=== PATIENT | female | born 1985 | race Two or more races ===

== ENCOUNTER 2024-05-31 03:36 | Emergency (ER) | payer MEDICAID, SELFPAY ==
[2024-05-31 03:41] VITALS: BP 114/79; PULSE 102; RESP 18; TEMP 36.7; O2SAT 96; BMI 23.2
--- NOTE | 2024-05-31 04:09 | PD.EDRME ---
Rapid Medical Screening Exam RME Arrival date/time: 05/31/24 03:36 39F with many pregnancies/miscarriages/abortions (patient does not remember how many exactly) presents to ED with 1 day of pelvic pain and vaginal bleeding. Unknown gestational age. Chief Complaint: Vaginal Bleeding Vital signs: Vital Signs Temperature 98.1 F 05/31/24 03:41 Pulse Rate 102 H 05/31/24 03:41 Respiratory Rate 18 05/31/24 03:41 Blood Pressure 114/79 05/31/24 03:41 Pulse Oximetry (%) 96 05/31/24 03:41 Oxygen Delivery Method Room Air 05/31/24 03:41
--- NOTE | 2024-05-31 04:29 | XR_ITS ---
Examination: Complete OB ultrasound, less than 14 weeks, transabdominal Date and time of exam: May 31, 2024 0432 hrs. Indications: Vaginal bleeding beginning 2 days ago Technique: Obstetrical ultrasound images less than 14 weeks performed via transabdominal imaging Findings: Uterus 11.2 cm endometrial stripe 2.3 cm Mild retained products of conception in the endometrium, 10 mm Gestational sac in the cervix 2.5 cm with no pole Right ovary obscured by bowel gas Left ovary 4.8 cm poorly visualized Impression: Findings most consistent with spontaneous in progress. Recommend short-term follow-up transvaginal pelvic sonography
--- NOTE | 2024-05-31 05:47 | PRELIM_ITS ---
Obstetric ultrasound (transabdominal) with Doppler. May 31, 2024 at 0432 hours Clinical history: Pain/bleeding; unknown gestational age. Technique: Real-time ultrasound was performed using Duplex scanning including arterial inflow, venous outflow, color and spectral Doppler analysis of both ovaries. Comparison: None. Findings: Cystic lesion in the endometrium measuring 0.7 x 0.6 x 1.0 cm without evidence of pole or yolk sac. Cystic lesion in the cervical canal measuring 2.5 x 2.0 x 2.0 cm without evidence of pole or yolk sac. The endometrium measures 2.2 cm. The uterus measures 11.2 x 6.6 x 6.2 cm. The right ovary was not visualized. The left ovary measures 4.8 x 3.2 cm, limited evaluation There is no free fluid in the pelvis. No abnormalities by Doppler. Impression: Cystic lesions in the endometrial canal and in the cervical canal without evidence of pole or yolk sac, please, correlate clinically. Differential necrosis includes early and ongoing spontaneous . Report Electronically Signed By: Frankie Ludwig 05/31/2024 5:46:59 AM [EST]
[2024-05-31 05:51] LABS: Basophils % (Auto) 0 % (0-2.5); Eosinophils # (Auto) 0.4 Thou/mm3 (0.0-0.5); Eosinophils % (Auto) 4 % (0-10); Hemoglobin 9.1 g/dL (12.0-16.0); Immature Granulocytes % (Auto) 0 % (0-0); Immature Granulocytes Auto 0.03 Thou/mm3 (0.00-0.00); Lymphocytes # (Auto) 1.8 Thou/mm3 (1.0-4.8); Lymphocytes % (Auto) 17 % (10-50); Mean Corpuscular HGB Conc 27.6 g/dl (31.0-37.0); Mean Corpuscular Hemoglobin 17.6 pg (25.0-35.0); Mean Corpuscular Volume 64 fL (80-100); Monocytes # (Auto) 0.8 Thou/mm3 (0.0-0.8); Monocytes % (Auto) 7 % (0-12); Neutrophils # (Auto) 7.6 Thou/mm3 (1.8-7.7); Neutrophils % (Auto) 72 % (37-80); Nucleated Red Blood Cell % 0 /100 WBC (0); Platelet Count 445 Thou/mm3 (140-440); RDW Standard Deviation 44.5 fL (36.4-46.3); Red Blood Count 5.18 Miln/mm3 (4.00-5.20); White Blood Count 10.6 Thou/mm3 (3.6-11.0)
[2024-05-31 06:17] VITALS: BP 113/75; PULSE 84; RESP 18; TEMP 37.1; O2SAT 99
[2024-05-31 06:34] LABS: Alanine Aminotransferase 28 U/L (10-49); Albumin, Serum 4.2 gm/dL (3.5-5.0); Albumin/Globulin Ratio 1.5 (1.2-2.2); Alkaline Phosphatase 98 U/L (46-116); Anion Gap 10 (7-16); Aspartate Amino Transferase 27 U/L (0-34); BUN/Creatinine Ratio 20 Ratio (12-20); Bilirubin,Total 0.2 mg/dL (0.3-1.2); Blood Urea Nitrogen 14 mg/dL (9-23); Calcium 8.9 mg/dL (8.3-10.6); Calcium (Corrected) 8.9 mg/dL (8.5-10.1); Carbon Dioxide 26.2 mMol/L (20.0-31.0); Chloride 104 mMol/L (98-107); Creatinine (Component) 0.7 mg/dL (0.6-1.3); Estimated Creatinine Clearance 84.5 mL/min (>60); Globulin 2.8 gm/dL (2.3-3.5); Glucose 95 mg/dL (74-106); Osmolality,Calculated 279 (275-295); Potassium 3.7 mMol/L (3.4-5.1); Sodium 140 mMol/L (136-145); eGFR > 60 See Note
[2024-05-31 06:51] LABS: Beta HCG,Quantitative 24510 mIU/mL (<5.0)
--- NOTE | 2024-05-31 07:56 | PC.NURSE ---
PT TOLD REGISTRATION SHE FEELS BETTER AND HAS TO TAKE HER KIDS TO SCHOOL. EL[facility]ED FROM [facility]
[2024-05-31 13:44] LABS: Path Review Blood Smear Sent to Pathologist
== END 2024-05-31 07:57 | disposition left against medical advice (07) ==
LOC: SERX 07:05
PROVIDERS: Physician Assistant; Emergency Provider Emergency Medicine; PCP Family Medicine
DX: R10.2 Pelvic and perineal pain (principal); N93.9 Abnormal uterine and vaginal bleeding, unspecified; Z53.29 Procedure and treatment not carried out because of patient's decision for other reasons
CPT/HCPCS: 36415; 76801; 80053; 80307; 81001; 84702; 85025; 86900; 86901; 99281

== ENCOUNTER 2025-03-05 16:46 | Emergency (ER) | payer MEDICAID, SELFPAY ==
[2025-03-05 16:59] VITALS: BP 118/72; PULSE 88; RESP 24; TEMP 36.7; O2SAT 99; BMI 24.8
--- NOTE | 2025-03-05 17:32 | PD.EDRME ---
Rapid Medical Screening Exam RME Arrival date/time: 03/05/25 16:46 39-year-old female with a history of asthma presents to the emergency room with a chief complaint of difficulty breathing x 1 day I have greeted and performed a focused initial assessment of this patient. A comprehensive ED assessment and evaluation of the patient, analysis of all test results, and completion of the medical decision making process will be conducted by additional ED providers. Chief Complaint: Asthma Time Seen by Provider: 03/05/25 16:48 Vital signs: Vital Signs Temperature 98.1 F 03/05/25 16:59 Pulse Rate 88 03/05/25 16:59 Respiratory Rate 24 H 03/05/25 16:59 Blood Pressure 118/72 03/05/25 16:59 Pulse Oximetry (%) 99 03/05/25 16:59 Oxygen Delivery Method Room Air 03/05/25 16:59 Vital signs reviewed by provider: Yes Exam: The patient has wheezing to the bilateral upper lobes O2 saturation is 99% on room air Patient has a strong and regular rhythm S1 and S2 Clinical Impression: URI/asthma exacerbation
[2025-03-05] MEDS: ALBUTEROL/IPRATROPIUM (Duoneb) RT SOL 3 ML NEBU 6 ML INH (17:54)
[2025-03-05 17:58] VITALS: PULSE 99; RESP 20; O2SAT 100
--- NOTE | 2025-03-05 18:38 | EDNOTE_ITS ---
ED General RME/HPI General Chief complaint: Asthma Stated complaint: DIFFICULTY BREATHING, DIFFICULTY TALKING, ASTHMA Time Seen by Provider: 03/05/25 16:48 Arrival date/time: 03/05/25 16:46 CC: Wheezing, ongoing for the past day, the patient denies fever chills shortness of breath difficulty breathing no OTC medicines taken. The patient is a G9,P6 at an estimated 5 months who has had no care in this denying any vaginal bleeding vaginal discharge. Patient has a history of asthma that is her primary complaint. RME / HPI RME / HPI narrative: 03/05/25 16:46 39-year-old female with a history of asthma presents to the emergency room with a chief complaint of difficulty breathing x 1 day I have greeted and performed a focused initial assessment of this patient. A comprehensive ED assessment and evaluation of the patient, analysis of all test results, and completion of the medical decision making process will be conducted by additional ED providers. Exam: The patient has wheezing to the bilateral upper lobes O2 saturation is 99% on room air Patient has a strong and regular rhythm S1 and S2 Impression: URI/asthma exacerbation Related Data Previous Rx's ?Medication ?Instructions ?Recorded albuterol sulfate 90 mcg/actuation 1 inh inhalation QI D #1 ea 03/05/25 breath activated powder inhaler Allergies Allergy/AdvReac Type Severity Reaction Status Date / Time No Known Allergies Allergy Verified 03/05/25 16:48 Review of Systems Review of Systems Narrative Review of Systems: GEN: No fever, no chills, no weight loss EYES: No discharge, no visual changes, no pain HEENT: No ear pain, no congestion, no sore throat PULM: No shortness of breath, no cough, no congestion,+ wheezing CV: No chest pain, no dyspnea on exertion, no palpitations GI: No nausea, no vomiting, no diarrhea, no pain, no constipation : No frequency, no urgency, no dysuria MUSC/SKEL: No joint pain, no back pain SKIN: No rash PSYCH: No hallucinations, no depression HEME/LYMPH: No easy bleeding or bruising tendencies NEURO: No weakness, no headache ED Exam Narrative Physical exam: [General: Not in any acute distress Head normocephalic HEENT: Within acceptable limits Neck is supple nontender Chest equal chest rise nontender to palpation Respiratory: Clear to auscultation with normal respiratory effort. End expiratory wheezing with forceful exhalation. No nasal flaring or pursed lip breathing. CV: Rate rhythm is regular no murmurs rubs or clicks Abdomen is distended secondary to , soft nontender no masses positive bowel sounds all 4 quadrants. heart tones established in the left lower quadrant of the abdomen with heart rate at 158-160 good variability. Back: No CVA tenderness no spinous process tenderness from cervical spine thoracic and lumbar spine Skin: Intact no petechiae rash induration ulceration or crepitus Extremities: Moving all extremity against resistance cap refill less than 2 seconds neurosensory intact Neuro: Awake alert oriented x3 Glascow coma 15 no focal deficits] Course Course Course Narrative: Upon reassessment of the patient at 1900, the patient has significant improvement with no end expiratory wheezing. heart tones are within acceptable range. Patient be discharged on inhaler asking requested. Patient is already on vitamins but has no OB follow-up at this time. Quality Measures none Orders Category Date Time Status ALBUTEROL RT 0.5ml [Proventil Rt 0.5ml] Med 03/05/25 18:38 Discontinued 2.5 mg INH X1 ONE Albuterol/Ipratr Rt Myriam [Duoneb Rt Myriam] Med 03/05/25 16:59 Discontinued 6 ml INH X1 ONE Sodium Chloride Rt Myriam 0.9% [NS Rt Myriam 0.9%] Med 03/05/25 18:38 Active 3 ml INH PRN PRN dexAMETHasone INJ [Decadron Inj] Med 03/05/25 16:59 Discontinued 10 mg PO X1 ONE Vital Signs Vital signs: Vital Signs Temperature 98.1 F 03/05/25 16:59 Pulse Rate 88 03/05/25 16:59 Respiratory Rate 24 H 03/05/25 16:59 Blood Pressure 118/72 03/05/25 16:59 Pulse Oximetry (%) 99 03/05/25 16:59 Oxygen Delivery Method Room Air 03/05/25 16:59 Discharge Plan Plan Patient Disposition: HOME (Self Care) Patient condition on transfer: Stable Prescriptions/Referrals Prescriptions/Med Rec: New albuterol sulfate 90 mcg/actuation aerosol powdr breath activated 1 inh inhalation QID Qty: 1 1RF Problem List Clinical Impression: Asthma, Patient/Caregiver Discharge Instructions Education Materials: Preg 2nd Trimester, Asthma Print Language: Latvian Stand Alone Forms: Inna Blount Info., Patient Portal Info Letter, Work/School Release PA/DERMATOLOGY PHYSICIAN Supervising Physician PA/DERMATOLOGY PHYSICIAN Supervising Physician: Abel Diaz ENP MDM Clinical Information Provided by: patient Medical Records reviewed [facility] Meds/Rx considered, not ordered None Labs/Rad/Tests considered, not ordered None Chronic Illness/Social Conditions Explain: EKG EKG not done Labs Labs: none Imaging Imaging interpretation: none Medication Administration(s) none Medication Administration History Sodium Chloride (Sodium Chloride Rt Myriam 0.9% 3 Ml Nebu) 3 ml INH PRN PRN PRN Reason: SOLN Stop: 04/04/25 18:37 Last Admin: 03/05/25 18:48 Dose: 3 ml Documented By: PAR Discontinued Medications Albuterol (Albuterol Rt 2.5 Mg/0.5 Ml Nebu) 2.5 mg INH X1 ONE Stop: 03/05/25 18:39 Last Admin: 03/05/25 18:48 Dose: 2.5 mg Documented By: PAR Albuterol/Ipratropium (Albuterol/Ipratropium (Duoneb) Rt Myriam 3 Ml Nebu) 6 ml INH X1 ONE Stop: 03/05/25 17:00 Last Admin: 03/05/25 17:54 Dose: 6 ml Documented By: PAR Dexamethasone Sodium Phosphate (Dexamethasone Sod Phos Inj 10 Mg/Ml Vial) 10 mg PO X1 ONE Stop: 03/05/25 17:00 Last Admin: 03/05/25 17:09 Dose: 10 mg Documented By: OA Diagnosis Differential Diagnosis ED Complaint MDM: Asthma exacerbation status asthmaticus viral syndrome
[2025-03-05 18:48] VITALS: PULSE 102; PULSE 97; RESP 18; O2SAT 100
[2025-03-05] MEDS: SODIUM CHLORIDE RT SOL 0.9% 3 ML NEBU INH (18:48)
[2025-03-05] MEDS: ALBUTEROL RT 2.5 MG/0.5 ML NEBU INH (18:48)
== END 2025-03-05 19:16 | disposition home or self-care (01) ==
PROVIDERS: Emergency Provider Emergency Medicine; PCP Family Medicine
DX: O99.512 Diseases of the respiratory system complicating pregnancy, second trimester (principal); J45.909 Unspecified asthma, uncomplicated; Z3A.00 Weeks of gestation of pregnancy not specified
CPT/HCPCS: 94640; 99283; A9270; J1100; J7611

== ENCOUNTER 2025-03-06 13:16 | Emergency (ER) | payer MEDICAID, SELFPAY ==
[2025-03-06 13:26] VITALS: BP 137/88; PULSE 126; RESP 26; TEMP 36.4; O2SAT 99; BMI 23.2
--- NOTE | 2025-03-06 13:30 | XR_ITS ---
EXAMINATION: PA chest single view TECHNIQUE: Upright PA chest single view Date and time: March 06, 2025, 1424 hours INDICATIONS: Shortness of breath today. FINDINGS: Significant bibasilar pneumonia Normal heart size Intact osseous structures IMPRESSION: Significant bibasilar pneumonia
--- NOTE | 2025-03-06 13:30 | EKG_ITS ---
[facility] Test Date: 2025-03-06 Pat Name: MONICA WASHINGTON Department: Room: - Gender: Female Beveler: : 1985 Requested By: Roderick Hoff (REMI) Order Number: [id number] Reading MD: Roderick Hoff (REMI) Measurements Intervals [place] Rate: 111 P: 75 SD: 117 QRS: 32 QRSD: 97 T: 38 QT: 321 QTc: 436 Interpretive Statements SINUS TACHYCARDIA WITH SHORT SD INTERVAL NONSPECIFIC ST & T-WAVE ABNORMALITY ABNORMAL RHYTHM ECG No previous ECG available for comparison /store/S0/[id number]/ecg/[id number].pdf
--- NOTE | 2025-03-06 13:31 | XR_ITS ---
Examination: Complete OB ultrasound greater than 14 weeks Date and time of exam: March 06, 2025, 1436 hours INDICATION: Shortness of breath today, 5-month by history Findings: Viable intrauterine single fetus with single amniotic sac presentation cephalic spine maternal right Cardiac motion 173 bpm Placenta complete previa Umbilical cord insertion and three-vessel marginal cord insertion 1 cm Amniotic fluid index 10.9 cm spine maternal right Cervix 4.1 cm Right ovary 3.0 cm arterial flow Left ovary 2.4 cm. Composite estimated gestational age based on BPD, head circumference, abdominal circumference, femur length is 15 weeks 4 days Estimated weight 126 g. Survey of intracranial anatomy, spinal anatomy, abdominal anatomy, four-chamber heart performed with no abnormalities identified. Impression: Viable intrauterine gestation cephalic presentation Complete placenta previa.
--- NOTE | 2025-03-06 13:32 | PD.EDRME ---
Rapid Medical Screening Exam RME Arrival date/time: 03/06/25 13:16 39-year-old female G9, P6 approximately 5 months presents to the Emergency Department for complaint of shortness of breath Chief Complaint: Shortness of Breath/Dyspnea Vital signs: Vital Signs Temperature 97.5 F 03/06/25 13:26 Pulse Rate 126 H 03/06/25 13:26 Respiratory Rate 26 H 03/06/25 13:26 Blood Pressure 137/88 H 03/06/25 13:26 Pulse Oximetry (%) 99 03/06/25 13:26 Oxygen Delivery Method Room Air 03/06/25 13:26 Vital signs reviewed by provider: Yes Exam: On exam patient tearful and anxious reports shortness of breath Clinical Impression: Lab work imaging obtained
[2025-03-06 13:57] LABS: Basophils # (Auto) 0.0 Thou/mm3 (0.0-0.2); Basophils % (Auto) 0 % (0-2.5); Eosinophils # (Auto) 0.0 Thou/mm3 (0.0-0.5); Eosinophils % (Auto) 0 % (0-10); Hematocrit 35.2 % (36.0-46.0); Hemoglobin 10.9 g/dL (12.0-16.0); Immature Granulocytes Auto 0.06 Thou/mm3 (0.00-0.00); Lymphocytes # (Auto) 0.5 Thou/mm3 (1.0-4.8); Lymphocytes % (Auto) 4 % (10-50); Mean Corpuscular HGB Conc 31.0 g/dl (31.0-37.0); Mean Corpuscular Hemoglobin 21.9 pg (25.0-35.0); Mean Corpuscular Volume 71 fL (80-100); Monocytes # (Auto) 0.6 Thou/mm3 (0.0-0.8); Monocytes % (Auto) 5 % (0-12); Neutrophils # (Auto) 11.2 Thou/mm3 (1.8-7.7); Neutrophils % (Auto) 91 % (37-80); Nucleated Red Blood Cell # 0.00 Thou/mm3 (0.00-0.00); Nucleated Red Blood Cell % 0 /100 WBC (0); Platelet Count 320 Thou/mm3 (140-440); RDW Standard Deviation 61.2 fL (36.4-46.3); Red Blood Count 4.97 Miln/mm3 (4.00-5.20); White Blood Count 12.4 Thou/mm3 (3.6-11.0)
[2025-03-06 14:21] LABS: Alanine Aminotransferase 13 U/L (10-49); Albumin, Serum 4.2 gm/dL (3.5-5.0); Albumin/Globulin Ratio 1.2 (1.2-2.2); Alkaline Phosphatase 85 U/L (46-116); Anion Gap 12 (7-16); Aspartate Amino Transferase 28 U/L (0-34); BUN/Creatinine Ratio 10 Ratio (12-20); Bilirubin,Total 0.2 mg/dL (0.3-1.2); Blood Urea Nitrogen 6 mg/dL (9-23); Calcium 9.2 mg/dL (8.3-10.6); Calcium (Corrected) 9.2 mg/dL (8.5-10.1); Carbon Dioxide 21.7 mMol/L (20.0-31.0); Chloride 104 mMol/L (98-107); Creatinine (Component) 0.6 mg/dL (0.6-1.3); Estimated Creatinine Clearance 98.6 mL/min (>60); Globulin 3.4 gm/dL (2.3-3.5); Glucose 106 mg/dL (74-106); Osmolality,Calculated 273 (275-295); Potassium 3.5 mMol/L (3.4-5.1); Sodium 138 mMol/L (136-145); Total Protein 7.6 gm/dL (5.7-8.2); Troponin I < 0.002 ng/mL (0.0-0.045); eGFR > 60 See Note
[2025-03-06 15:06] LABS: Beta HCG,Quantitative 25555 mIU/mL (<5.0)
--- NOTE | 2025-03-06 16:38 | EDNOTE_ITS ---
<Statement entered by Kelli Graff MD - 03/21/25 07:23> As co-signing physician, I was present and available for consult prn. I concur with the plan and care as documented by the midlevel provider. ED SOB =RME/HPI General Chief Complaint: Shortness of Breath/Dyspnea Stated Complaint: DIFFICULTY BREATHING, BACK/CHEST PAIN Time Seen by Provider: 03/06/25 16:15 Arrival date/time: 39-year-old female with no past medical history G9, P6 approximately 5 months presents to the Emergency Department for complaint of shortness of breath, cough, nonproductive, severity moderate. Has been ongoing for the last few days. Patient denies any fever denies any other complaints no medication was taken prior to ER visit RME / HPI Exam: On exam patient tearful and anxious reports shortness of breath Impression: Lab work imaging obtained Related Data Previous Rx's ?Medication ?Instructions ?Recorded albuterol sulfate 90 mcg/actuation 1 inh inhalation QI D #1 ea 03/05/25 breath activated powder inhaler albuterol sulfate 2.5 mg/3 mL 2.5 mg (3 mL) inhalation QID PRN 03/06/25 (0.083 %) solution for nebulization shortness of breat h or wheezing #90 mL amoxicillin 875 mg-potassium 1 tab PO BID #14 tabs clavulanate 125 mg tablet azithromycin 250 mg tablet 250 mg PO QDAY 4 days #4 ta bs 03/06/25 (Zithromax) Allergies Allergy/AdvReac Type Severity Reaction Status Date / Time No Known Allergies Allergy Verified 03/06/25 13:18 Review of Systems Review of Systems Narrative Review of Systems: Review of system reviewed and within normal limits except mentioned in HPI ED Exam Narrative Physical exam: VITAL SIGNS: Reviewed. GENERAL APPEARANCE: Alert and interactive, follows commands, no acute distress, HEAD AND FACE: Non-traumatic. ENT: PERRL, pink conjunctivitis, eyelid no trauma, Mucous membrane moist. NECK: Supple, nontender, no nuchal rigidity. CHEST: No tenderness, no crepitus, no paradoxical movement, no retractions. LUNGS: Clear, well ventilated, symmetric, no rales, no wheezing, no ronchi, no stridor, good breath sounds bilaterally. HEART: Regular rate, regular rhythm, no murmur, no gallops. ABDOMEN: Soft, positive bowel sounds, nondistended, no guarding, nontender, no rebound, no masses, RECTAL: Deferred. GENITAL: Deferred. NEUROLOGICAL: Gross motor function intact sensory function intact, Appropriate for age. MUSCULOSKELETAL: low back nontender, full range of motion. EXTREMITIES: Nontender, full range of motion. SKIN: Color pink, dry, no rash, no lacerations, no abrasions, no contusions. LYMPHATICS: Deferred. Course Quality Measures none Orders Category Date Time Status EKG (ED ONLY) *Do not use* NOW Care 03/06/25 13:30 Completed EKG (ED Only) Stat Exams 03/06/25 13:30 Draft US OB >= 14 weeks Fetus Stat Exams 03/06/25 13:31 Completed XR chest 1V portable Stat Exams 03/06/25 13:30 Completed Beta HCG,Quantitative Stat Lab 03/06/25 13:42 Completed CBC Stat Lab 03/06/25 13:42 Completed Comprehensive Metabolic Panel Stat Lab 03/06/25 13:42 Completed Drug Screen,Urine Stat Lab 03/06/25 13:31 Ordered Troponin I Stat Lab 03/06/25 13:42 Completed Amoxicillin/Pot Clav 875 [Augmentin 875] Med 03/06/25 16:41 Discontinued 1 tab PO X1 ONE Azithromycin Po [Zithromax PO] Med 03/06/25 16:41 Discontinued 500 mg PO X1 ONE predniSONE Med 03/06/25 17:05 Once 60 mg PO X1 ONE Vital Signs Vital signs: Vital Signs Temperature 97.5 F 03/06/25 13:26 Pulse Rate 126 H 03/06/25 13:26 Respiratory Rate 26 H 03/06/25 13:26 Blood Pressure 137/88 H 03/06/25 13:26 Pulse Oximetry (%) 99 03/06/25 13:26 Oxygen Delivery Method Room Air 03/06/25 13:26 Shortness of Breath / Dyspnea MDM Narrative MDM Narrative:: 39-year-old female with no past medical history G9, P6 approximately 5 months presents to the Emergency Department for complaint of shortness of breath, cough, nonproductive, severity moderate. Has been ongoing for the last few days. Patient denies any fever denies any other complaints no medication was taken prior to ER visit Patient has a history of bilateral pneumonia. Patient laboratory workup came back unremarkable except for slight leukocytosis 12.4. CMP unremarkable. Ultrasound of the showed single live intrauterine uterine gestation about 15 weeks gestation. EKG showed sinus tachycardia, ventricular rate of 111 bpm, no ST segment elevation depression noted. Patient received a dose of prednisone, benefits outweigh the risk at this time. Patient is aware of the risk. Patient accepts the risk. Patient was also given Augmentin and Zithromax. Stable for discharge home Patient data External records reviewed:: None Clinical information provided by:: patient Social determinants that could affect healthcare access:: none Patient has the following chronic illnesses:: history of asthma How is presenting disease/condition affected by chronic disease/condition?: e xacerbated by Evaluation data The following diagnostics were reviewed and interpreted by me:: lab results and radiology exam(s) Lab and/or radiology exams considered but not ordered:: None Interpretation Summary: See above Medications / Prescriptions Medications or Prescriptions considered but not ordered:: None Medication administrations:: Medication Administration History Discontinued Medications Amoxicillin/Clavulanate Potassium (Amoxicillin/Pot Clav 875 Tablet) 1 tab PO X1 ONE Stop: 03/06/25 16:42 Azithromycin (Azithromycin 250 Mg Tablet) 500 mg PO X1 ONE Stop: 03/06/25 16:42 Amoxicillin Zithromax prednisone Consultations Consultation(s) initiated? (list below): No Diagnosis Shortness of Breath Differential Diagnosis: community acquired pneumonia and asthma with exacerbation Most likely diagnosis given after review of the tests above:: Pneumonia, Admission Indicated Admission indicated?: not indicated Admission Request Was there a request for admission?: No Disposition Plan Disposition Plan: Discharge Discharge Attestation Discharge Attestation: The patient and all family members were given an opportunity to ask questions and understood the discharge instructions. Discharge instructions specifically effects, indications for sooner follow up or return to the emergency department, and the expected course of current diagnosis. Patient condition: Stable Discharge Plan Plan Patient Disposition: HOME (Self Care) Discharge Disposition comment: Stable Prescriptions/Referrals Prescriptions/Med Rec: New albuterol sulfate 2.5 mg /3 mL (0.083 %) solution for nebulization 2.5 mg inhalation QID PRN (Reason: shortness of breath or wheezing) Qty: 90 0RF azithromycin [Zithromax] 250 mg tablet 250 mg PO QDAY 4 Days Qty: 4 0RF Rx Instructions: start on day 2 of therapy amoxicillin-pot clavulanate 875-125 mg tablet 1 tab PO BID Qty: 14 0RF No Action albuterol sulfate 90 mcg/actuation aerosol powdr breath activated 1 inh inhalation QID Qty: 1 1RF Referrals: Deniz Pires MD [Primary Care Provider, Family Practice] - In 1 week Problem List Clinical Impression: Community acquired pneumonia, and not yet delivered in second trimester Patient/Caregiver Discharge Instructions Discharge Activity: activity as tolerated Education Materials: Treating Pneumonia Additional Instructions: Thank you for the opportunity for serving you today. You are stable for discharged . You are advised to: Follow-up with your PCP in 1 to 2 days Return to ED for worsening of symptoms Increase oral fluids Take medication as prescribed Print Language: Botswanan Stand Alone Forms: Inna Award Info., Patient Portal Info Letter PA/RIGOBERTO Supervising Physician IRIS/RIGOBERTO Supervising Physician: MD Nahid
[2025-03-06] MEDS: AZITHROMYCIN 250 MG TABLET 500 MG PO (17:42)
[2025-03-06] MEDS: AMOXICILLIN/POT CLAV 875 TABLET 1 TAB PO (17:42)
[2025-03-06 17:46] LABS: Amphetamine/Methamp Scrn,U Positive (Negative); Barbiturate Screen,Urine Negative (Negative); Benzodiazepines Screen,Urine Negative (Negative); Benzoylecgonine Screen, Ur Negative (Negative); Fentanyl Screen,Urine Negative (Negative); Opiate Screen,Urine Negative (Negative); THC Screen,Urine Negative (Negative)
== END 2025-03-06 18:48 | disposition home or self-care (01) ==
PROVIDERS: Nurse Practitioner Primary Care; Emergency Provider Emergency Medicine; PCP Family Medicine
DX: O99.512 Diseases of the respiratory system complicating pregnancy, second trimester (principal); J18.9 Pneumonia, unspecified organism; R00.0 Tachycardia, unspecified; Z3A.15 15 weeks gestation of pregnancy
CPT/HCPCS: 36415; 71045; 76805; 80053; 80307; 84484; 84702; 85025; 93005; 99283; J7512; A9270